=== PATIENT | male | born 1950 | race Caucasian/White ===

== ENCOUNTER 2016-07-26 17:03 | Emergency (ER) | payer OTHER ==
[2016-07-26] MEDS ORDERED: HYDROGEN PEROXIDE 3% ONE (17:08)
[2016-07-26 17:23] VITALS: BP 103/64; BMI 39.9
[2016-07-26] MEDS ORDERED: XYLOCAINE 2 % (PLAIN) ONE (17:30)
[2016-07-26] MEDS ORDERED: BACITRACIN ZINC ONE (18:52)
[2016-07-26] MEDS ORDERED: NS 50 ML IV 0 ML IV ONE (18:56)
[2016-07-26] MEDS ORDERED: ANCEF VIAL 1 GM ONE (18:56)
[2016-07-26] MEDS ORDERED: ANCEF VIAL 1 GM 2 GM in NS 100 ML IV 100 ML IV ONE (19:05)
[2016-07-26] MEDS ORDERED: NS 100 ML IV 100 ML IV ONE (19:06)
[2016-07-26] MEDS ORDERED: NEOSPORIN OINT ONE (20:46)
[2016-07-26] MEDS ORDERED: NEOSPORIN OINT TOP ONE (20:48)
--- NOTE | 2016-07-26 21:00 | DR.GENAD ---
HPI - PCP Primary Care Physician: sarahi pascual - HPI Comment HPI Comment: PATIENT FELL AT HOME AND SUSTAIN 10 CM LAC TO RIGHT LEG AND 12CM LAC TO RIGHT ELBOW. DT UTD. - Complaint/Symptoms Chief Complaint Doctors Comments: FELL, LACERATION RIGHT ELBOW AND RIGHT LEG. Chief Complaint:: laceration to right arm and right lower leg - Nurses notes reviewed Nurses Notes Review: Yes - Source History Provided: Patient - Mode of Arrival Mode of Arrival: Wheelchair - Timing Onset of Chief Complaint: 07/26/16 Came on: Suddenly - Duration Duration: Constant Duration: Hours - Severity Severity: Moderate PMH - PMH Past Medical History: Yes Past Medical History: Dyslipidemia, Hypertension Past Surgical History: Yes Surgical History: Joint Replacement, Ortho Surgery Past Surgical History Comment: bilateral hip replacement, cataract surgery, left wrist surgery - Family History History of Family Medical Conditions: Yes Family Medical History: Hypertension - Social History Does patient currently use any type of tobacco product: No Have you used tobacco products in the last 12 months: No Type of Tobacco Use: None Does any household member use tobacco: No Alcohol Use: None Do you use any recreational Drugs:: No Lives With: Family Lives Where: Home - infectious screening In the last 2 months have you had wt loss of >10#?: NO Have you had fever, night sweats or hemotysis?: No Have you traveled outside the country in the last 6 months?: No Isolation: Standard ROS - Review of Systems Constitutional: No Symptoms Reported Eyes: No Symptoms Reported ENTM: No Symptoms Reported Respiratoy: No Symptoms Reported Cardiovascular: No Symptoms Reported Gastrointestinal/Abdominal: No Symptoms Reported Genitourinary: No Symptoms Reported Neurological: No Symptoms Reported Musculoskeletal: Right, Elbow, Leg Integumentary: No Symptoms Reported (10CM LAC RIGHT LEG AND 12 CM LAC ROGHT ELBOW.), Other Hematologic/Lymphatic: Easy Bruising Endocrine: No Symptoms Reported All Other Systems: Reviewed and Negative PE - Vital Signs Vitals: Temperature 98.2 F Pulse Rate 90 Respiratory Rate 16 Blood Pressure [Right Arm] 136/76 Blood Pressure 103/64 O2 Sat by Pulse Oximetry 93 - General Limitations: No Limitations General Appearance: Alert - Head Head Exam: Normal Inspection - Eyes Eye exam: Normal Appearance - ENT ENT Exam: Normal External Ear Exam External Ear Exam: Normal External Inspection TM/Canal Exam: Bilateral Normal Nose Exam: Normal Nose Exam Mouth Exam: Normal Inspection Throat Exam: Normal Inspection - Neck Neck Exam: Normal Inspection - Respiratory Respiratory Exam: Normal Lung Sounds Bilat Respiratory Exam: Bilateral Clear to Auscultation - Cardiovascular Cardiovascular Exam: Regular Rate, Normal Rhythm, Normal Heart Sounds - Abdominal Exam Abdominal Exam: Normal Bowel Sounds, Soft. negative: Tenderness - Extremities Extremities Exam: Tenderness (RIGHT ELBOW AND LEG.), Joint Swelling (RT ELBOW) - Back Back Exam: Normal Inspection - Neurologic Neurological Exam: Alert, Oriented X3 - Psychiatric Psychiatric Exam: Anxious - Skin Skin Exam: Normal Color, Other (10CM LAC RIGHT LEG. 12CM LAC RIGHT ELBOW.) MDM - Additional Information Additional Information Obtained From: Family - Differential Diagnosis Differential Diagnosis: LAC RIGHT ELBOW AND LEG. Course - Treatment Treatment: SEE ORDERS. LAC CLOSE IN RD. - Education/Counseling Education/Counseling: Patient, Family, Education Educated On: Treatment, Diagnosis, Needs for Follow Up Procedures - Laceration/Wound Repair Right Leg Wound Length (cm): 10 Wound's Depth, Shape: Flap Wound Explored: contaminated Irrigated w/ Saline (ccs): 500 Betadine Prep?: Yes Anesthesia: 2% Lidocaine Volume Anesthetic (ccs): 10 Wound Debrided: minimal Wound Repaired With: sutures Suture Size/Type: 4:0, Eth[place] Number of Sutures: 17 Layer Closure?: Yes Deep Layer Suture Size/Type: 3:0, Vicryl Number Deep Layer Sutures: 4 Sterile Dressing Applied?: Yes Splint Applied?: No Sling Applied?: No Right Elbow Wound's Depth, Shape: Irregular, Flap Wound Explored: contaminated Irrigated w/ Saline (ccs): 500 Betadine Prep?: Yes Anesthesia: 2% Lidocaine Volume Anesthetic (ccs): 10 Wound Debrided: minimal Wound Repaired With: sutures Suture Size/Type: 4:0, Ethilion Number of Sutures: 18 Sterile Dressing Applied?: Yes Splint Applied?: No Sling Applied?: No - Diagnosis Discharge Problem: Laceration of right lower leg Qualifiers: Encounter type: initial encounter Qualified Code(s): S81.811A - Laceration without foreign body, right lower leg, initial encounter Laceration of right elbow Qualifiers: Encounter type: initial encounter Qualified Code(s): S51.011A - Laceration without foreign body of right elbow, initial encounter Contusion of right elbow Qualifiers: Encounter type: initial encounter Qualified Code(s): S50.01XA - Contusion of right elbow, initial encounter Contusion of right leg Qualifiers: Encounter type: initial encounter Qualified Code(s): S80.11XA - Contusion of right lower leg, initial encounter - Discharge Plan Disposition: HOME, SELF-CARE Condition: Stable Prescriptions: Cephalexin [Keflex Cap 500 mg] 500 mg PO QID #40 cap Hydrocodone-Acetaminophen [[place] 5-325 mg] 1 tab PO Q6H #15 tab - Follow ups/Referrals Follow ups/Referrals: FERNANDO PASCUAL [Primary Care Provider] - 3 days - Instructions Instructions: Laceration Care, Adult, [id number], Contusion, [id number] Additional Instructions: RETURN TO ED IF WORSE. SUTURE OUT IN 14 DAYS
== END 2016-07-26 21:15 | disposition home or self-care (01) ==
LOC: ER 17:11
PROC: 0XQB0ZZ Repair Right Elbow Region, Open Approach (ICD-10-PCS; principal; 2016-07-26)
PROC: 0YQH0ZZ Repair Right Lower Leg, Open Approach (ICD-10-PCS; principal; 2016-07-26)
DX: S81.811A Laceration without foreign body, right lower leg, initial encounter (principal); S51.011A Laceration without foreign body of right elbow, initial encounter; S50.01XA Contusion of right elbow, initial encounter; S80.11XA Contusion of right lower leg, initial encounter; W19.XXXA Unspecified fall, initial encounter; Y92.009 Unspecified place in unspecified non-institutional (private) residence as the place of occurrence of the external cause
CPT/HCPCS: 12036; 96365; 96374; 99283; A4222; J0690; J2001